=== PATIENT | male | born 1995 | race Caucasian/White ===

== ENCOUNTER 2018-04-04 15:38 | Observation (INO) | payer OTHER, SELFPAY ==
[2018-04-04 15:57] VITALS: BMI 21.2
[2018-04-04 16:04] VITALS: BMI 21.2
--- NOTE | 2018-04-04 16:12 | PCM.HP.STD ---
Problem List (1) Heroin withdrawal Status: Acute History of Present Illness Date of Admission: 04/04/18 Chief Complaint: heroine use The patient is a 22 year old M with a h/o stomach pain and heroine use presenting with withdrawal and a CINA of 18. He last used last night and he has a 2 gm per day heroine habit. He states that he started using at 15 yo because of his stomach pains. Nothing ever worked for his pain and he had seen multiple doctors who had no answer so he turned to heroine. He denies any h/o withdrawal or overdose. He has been to rehab 1 time prior in 2017 in [place]. It was there that a doctor started him on amitriptyline for his stomach pain which has helped a lot. Past Medical History Allergies amoxicillin Allergy (Verified 04/04/18 16:06) Rash Home Medications: Ambulatory Orders Medication Instructions Recorded Amitriptyline HCl [Amitriptyline 50 mg PO QHS 04/04/18 HCl] Surgical History: no surgical history Psychiatric History: No pertinent psych hx Lives: With Family Smoking Status: Current every day smoker Alcohol: None Drugs: Heroin - *Family History Maternal History Items: - - Heroine use Review of Systems Constitutional: Denies: Chills, Fever, Weight Change HEENT: Reports: Head Aches. Denies: Sinus Congestion, Sinus Drainage Cardiovascular: Denies: Chest Pain, Palpitations Respiratory: Denies: Cough, Shortness of breath at rest, Sputum production Gastrointestinal: Reports: Abdominal Pain. Denies: Nausea, Vomiting Genitourinary: Denies: Dysuria Musculoskeletal: Denies: Joint Pain, Joint Tenderness Skin: Denies: Rash, Wounds Neurological: Reports: Tremor. Denies: Focal weakness, Numbness, Tingling Psychiatric: Denies: Anxiety, Depression Hematologic/ Lymphatic: Denies: Easy Bruising, Easy Bleeding VTE Information - Inpt Only VTE Present on Admission: No Patient Problems: Active and Suspected Problems Heroin withdrawal (Acute) - Physical Exam General: Alert, Oriented x3, Cooperative, - - tremulous HEENT: Atraumatic, EOMI, Normocephalic Oral: Moist Mucosa Neck: Supple, No JVD Lungs: Clear to auscultation, Normal air movement, No rhonchi, No rales, Wheezes Cardiovascular: Regular Rhythm, Normal S1, Normal S2, No murmurs, Tachycardic Abdomen: Soft, Non Tender, Non-Distended, No Hepato-splenomegaly Skin: No rashes, No breakdown Psych/Mental Status: Normal Affect, Restless Weight: 131 lb 6.328 oz Body Mass Index (BMI) 21.2 Assessment/Plan All Active Problems Heroin withdrawal (Acute) 1. Heroine withdrawal - [facility] is already aware - Will admit to [facility] - Standard PRN medications ordered and will montior - Buprenorphine taper 2. Stomach pain - He states its because he has a broken nerve as he was told by the Doctor in [place] - C/w his amitriptyline 3. Tobacco use - Counseled on its cessation - Will start a nicotine patch 4. Wheezing - He denies an h/o asthma - Will start albuterol q4 prn for wheezing Diet: Regular DVT: None Code Visit Inpatient E&M: 06167 Init Hosp L2
--- NOTE | 2018-04-04 16:16 | HP.PCM_ITS ---
Problem List (1) Heroin withdrawal Status: Acute History of Present Illness Date of Admission: 04/04/18 Chief Complaint: heroine use The patient is a 22 year old M with a h/o stomach pain and heroine use presenting with withdrawal and a CINA of 18. He last used last night and he has a 2 gm per day heroine habit. He states that he started using at 15 yo because of his stomach pains. Nothing ever worked for his pain and he had seen multiple doctors who had no answer so he turned to heroine. He denies any h/o withdrawal or overdose. He has been to rehab 1 time prior in 2017 in [place]. It was there that a doctor started him on amitriptyline for his stomach pain which has helped a lot. Past Medical History Allergies amoxicillin Allergy (Verified 04/04/18 16:06) Rash Home Medications: Ambulatory Orders Medication Instructions Recorded Amitriptyline HCl [Amitriptyline 50 mg PO QHS 04/04/18 HCl] Surgical History: no surgical history Psychiatric History: No pertinent psych hx Lives: With Family Smoking Status: Current every day smoker Alcohol: None Drugs: Heroin - *Family History Maternal History Items: - - Heroine use Review of Systems Constitutional: Denies: Chills, Fever, Weight Change HEENT: Reports: Head Aches. Denies: Sinus Congestion, Sinus Drainage Cardiovascular: Denies: Chest Pain, Palpitations Respiratory: Denies: Cough, Shortness of breath at rest, Sputum production Gastrointestinal: Reports: Abdominal Pain. Denies: Nausea, Vomiting Genitourinary: Denies: Dysuria Musculoskeletal: Denies: Joint Pain, Joint Tenderness Skin: Denies: Rash, Wounds Neurological: Reports: Tremor. Denies: Focal weakness, Numbness, Tingling Psychiatric: Denies: Anxiety, Depression Hematologic/ Lymphatic: Denies: Easy Bruising, Easy Bleeding VTE Information - Inpt Only VTE Present on Admission: No Patient Problems: Active and Suspected Problems Heroin withdrawal (Acute) - Physical Exam General: Alert, Oriented x3, Cooperative, - - tremulous HEENT: Atraumatic, EOMI, Normocephalic Oral: Moist Mucosa Neck: Supple, No JVD Lungs: Clear to auscultation, Normal air movement, No rhonchi, No rales, Wheezes Cardiovascular: Regular Rhythm, Normal S1, Normal S2, No murmurs, Tachycardic Abdomen: Soft, Non Tender, Non-Distended, No Hepato-splenomegaly Skin: No rashes, No breakdown Psych/Mental Status: Normal Affect, Restless Weight: 131 lb 6.328 oz Body Mass Index (BMI) 21.2 Assessment/Plan All Active Problems Heroin withdrawal (Acute) 1. Heroine withdrawal - [facility] is already aware - Will admit to [facility] - Standard PRN medications ordered and will montior - Buprenorphine taper 2. Stomach pain - He states its because he has a broken nerve as he was told by the Doctor in [place] - C/w his amitriptyline 3. Tobacco use - Counseled on its cessation - Will start a nicotine patch 4. Wheezing - He denies an h/o asthma - Will start albuterol q4 prn for wheezing Diet: Regular DVT: None Code Visit Inpatient E&M: 65025 Init Hosp L2
[2018-04-04 16:19] VITALS: BP 123/81; PULSE 91; RESP 18; TEMP 36.4
[2018-04-04] MEDS: Acetaminophen 325 MG Tablet 650 MG PO (17:10)
[2018-04-04] MEDS: Buprenorphine HCl 2 MG TAB.SUBL SL (17:11)
[2018-04-04] MEDS: Dicyclomine 10 MG Capsule 20 MG PO (17:11)
[2018-04-04] MEDS: cloNIDine HCl 0.1 MG Tablet PO (17:16)
[2018-04-04 18:34] VITALS: BP 117/73; PULSE 73; RESP 12; TEMP 36.7
[2018-04-04 20:34] VITALS: BP 106/68; PULSE 74; RESP 16; TEMP 36.9
[2018-04-05] MEDS: Buprenorphine HCl 2 MG TAB.SUBL SL ×3 (00:24→16:42)
[2018-04-05] MEDS: Acetaminophen 325 MG Tablet 650 MG PO ×3 (00:24→20:32)
[2018-04-05] MEDS: hydrOXYzine PAM 25 MG Capsule 50 MG PO ×2 (00:27→21:19)
[2018-04-05 02:00] VITALS: BP 134/58; PULSE 65; RESP 16; TEMP 36.6
[2018-04-05 06:00] VITALS: BP 116/55; PULSE 68; RESP 18; TEMP 36.8
[2018-04-05 10:32] VITALS: BP 119/92; PULSE 100; RESP 18; TEMP 36.4
--- NOTE | 2018-04-05 13:02 | PCM.PN.HOSP ---
Patient Problems: Active and Suspected Problems Heroin withdrawal (Acute) Subjective: Patient symptoms are better controlled. Denies tremors/myoclonus or abdominal pain/diarrhea. No sweating. Denies IV use of heroin. Denies other substance use except heroin. Vitals/I&O's: Vital Signs Temp Pulse Resp BP 97.5 F L 100 18 119/92 H 04/05/18 10:32 04/05/18 10:32 04/05/18 10:32 04/05/18 10:32 Weight: 131 lb 6.328 oz Body Mass Index (BMI) 21.2 Intake and Output for Last 24 Hours 04/03/18 04/04/18 04/05/18 23:59 23:59 23:59 Intake Total 850 / 850 Balance 850 / 850 General: Alert, Oriented x3, Cooperative HEENT: Atraumatic, PERRLA, EOMI, Normocephalic Neck: Supple, No JVD, Negative Carotid Bruits Lungs: Clear to auscultation, Normal air movement Cardiovascular: Regular rate, Normal S1, Normal S2, No murmurs Abdomen: Bowel Sounds Present, Soft, Non Tender, Non-Distended, No Hepato-splenomegaly Extremities: No edema, Capillary Refill Less than 3 Seconds Skin: No rashes, No breakdown Musculoskeletal: No Tenderness to Palpation of Joints or Extremities Neurological: Cranial nerves II-XII grossly intact, Neuro grossly intact Psych/Mental Status: Normal Affect, Appropriate Current Medications Acetaminophen (Tylenol) 650 mg PO Q6H PRN PRN PRN Reason: for toothache. Last Admin: 04/05/18 00:24 Dose: 650 mg Albuterol Sulfate (Ventolin Aerosols) 2.5 mg INHALATION Q4HWA.RT PRN PRN Reason: WHEEZING Buprenorphine HCl (Buprenorphine Hcl) 4 mg SL Q8H JACE PRN Reason: Taper Stop: 04/07/18 20:59 Last Admin: 04/05/18 10:28 Dose: 4 mg Clonidine (Catapres) 0.1 mg PO Q2H PRN PRN PRN Reason: Hot/Cold Sweats or Anxiety Last Admin: 04/04/18 17:16 Dose: 0.1 mg Dicyclomine HCl (Bentyl) 20 mg PO Q6H PRN PRN PRN Reason: Abdomnial Discomfort Last Admin: 04/04/18 17:11 Dose: 20 mg Hydroxyzine HCl (Vistaril Vial) 50 mg IM Q6H PRN PRN PRN Reason: Breakthrough Anxiety Hydroxyzine Pamoate (Vistaril Pamoate Capsule) 50 mg PO Q6H PRN PRN PRN Reason: Mild Anxiety Last Admin: 04/05/18 00:27 Dose: 50 mg Methocarbamol (Methocarbamol) 750 mg PO Q6H PRN PRN PRN Reason: Muscle Aches Nicotine (Nicoderm Cq (Pbkc)) 14 mg TRANSDERM. DAILY JACE Last Admin: 04/05/18 10:28 Dose: 14 mg Pramipexole Dihydrochloride (Mirapex) 0.25 mg PO Q12H PRN PRN PRN Reason: Restless Legs Medical Necessity - Tobacco Use Smoking Status: Current every day smoker Assessment/Plan All Active Problems Heroin withdrawal (Acute) The patient is a 22 year old M with history of heroin use through inhalation/snorting was admitted with heroin withdrawal of the stomach pain and a CINA of 18. He last use was was 1 night before admission and he has a 2 gm per day heroine habit. He states that he started using at 15 yo because of his stomach pains. Nothing ever worked for his pain and he had seen multiple doctors who had no answer so he turned to heroine. He denies any h/o withdrawal or overdose. He has been to rehab 1 time prior in 2017 in [place]. It was there that a doctor started him on amitriptyline for his stomach pain which has helped a lot. 1. Heroine withdrawal -Per [facility] protocol for heroin withdrawal - Buprenorphine taper. Basic labs including CBC and CMP ordered. Folic acid and B12 ordered 2. Stomach pain - He states its because he has a broken nerve as he was told by the Doctor in [place] - C/w his amitriptyline 3. Tobacco use - Counseled on its cessation - nicotine patch 4. Wheezing - He denies an h/o asthma - albuterol q4 prn for wheezing DVT prophylaxis: Low risk. Early ambulation encouraged. Code Visit Inpatient E&M: 90934 Subs Hosp L2
[2018-04-05 14:25] VITALS: BP 123/76; PULSE 67; RESP 14; TEMP 36.7
[2018-04-05 15:26] LABS: Absolute Lymphocyte Count 2.36 X10^3/ul (0.83-4.51); Absolute Neutrophil Count 5.3 X10^3/uL (2.0-7.7); Basophil# 0.06 X10^3/uL; Basophil% 0.7 % (0-1); Eosinophil# 0.79 X10^3/uL; Eosinophils% 8.7 % (0-5); Hematocrit 45.9 % (40-54); Hemoglobin 15.1 g/dl (13.0-16.5); Lymphocyte # 2.36 X10^3/ul (4.0); Lymphocyte % 25.9 % (19-41); Mean Corp Hgb Conc 32.9 g/gl (32-36); Mean Corpuscular Hgb 30.4 pg (27.0-32.0); Mean Corpuscular Volume 92.4 fL (80-94); Mean Platelet Vol. 10.5 fl (6.2-12.0); Monocyte# 0.57 X10^3/uL; Monocyte% 6.3 % (0-10); Neutrophil # 5.32 X10^3/uL (2.7-7.7); Neutrophil % 58.3 % (47-70); Platelet Count 327 K/mm3 (150-450); RBC Distribution Width CV 12.7 % (11.6-14.6); RBC Distribution Width SD 42.5 fl (35.1-43.9); Red Blood Count 4.97 M/mm3 (4.6-6.2); White Blood Count 9.1 K/mm3 (4.4-11.0)
[2018-04-05 15:33] LABS: POSITIVE COUNT NO; POSITIVE DIFFERENTIAL NO; POSITIVE MORPHOLOGY NO
[2018-04-05 15:54] LABS: Vitamin B12 274 pg/mL (211-911)
[2018-04-05 15:59] LABS: AST(SGOT) 18 U/L (15-37); Alanine Aminotransfer ALT/SGPT 28 U/L (16-61); Albumin, Serum 3.7 g/dL (3.2-5.0); Alkaline Phosphatase 141 U/L (45-117); Anion Gap 6 (5-15); BUN 6 mg/dL (7-18); BUN/Creat Ratio 7.2 RATIO (10-20); Calcium,Total 9.1 mg/dL (8.5-10.1); Chloride 103 mmol/L (98-107); Creatinine, Serum 0.83 mg/dL (0.70-1.30); EST Glomerular Filtration Rate 121 mL/min (>60); Est Glom Filt Rate - Afr Amer 147 mL/min (>60); Estimated Creatinine Clearance 116.69 ml/min; Globulin 3.8 g/dL (2.2-4.2); Glucose 79 mg/dL (74-106); Protein, Total 7.5 g/dL (6.4-8.2); Sodium Level 139 mmol/L (136-145)
[2018-04-05] MEDS: Amitriptyline 25 MG Tablet 50 MG PO (20:34)
[2018-04-05 22:00] VITALS: BP 121/82; PULSE 90; RESP 18; TEMP 36.6
[2018-04-06] MEDS: Buprenorphine HCl 2 MG TAB.SUBL SL ×3 (00:36→21:39)
[2018-04-06 02:50] VITALS: BP 118/86; PULSE 68; RESP 16; TEMP 36.7
[2018-04-06 10:00] VITALS: BP 130/79; PULSE 60; RESP 16; TEMP 36.6
--- NOTE | 2018-04-06 11:43 | PCM.PN.HOSP ---
Patient Problems: Active and Suspected Problems Heroin withdrawal (Acute) Subjective: Patient is on nicotine patch for smoking. He had a strong urge of smoking yesterday but is more calm today. Vitals/I&O's: Vital Signs Temp Pulse Resp BP 97.9 F 60 16 130/79 H 04/06/18 10:00 04/06/18 10:00 04/06/18 10:00 04/06/18 10:00 Oxygen Delivery Method Room Air Weight: 131 lb 6.328 oz Body Mass Index (BMI) 21.2 Intake and Output for Last 24 Hours 04/04/18 04/05/18 04/06/18 23:59 23:59 23:59 Intake Total 1350 / 1350 1000 / 1000 Balance 1350 / 1350 1000 / 1000 General: Alert, Oriented x3, Cooperative HEENT: Atraumatic, PERRLA, EOMI, Normocephalic Neck: Supple, No JVD, Negative Carotid Bruits Lungs: Clear to auscultation, Normal air movement Cardiovascular: Regular rate, No murmurs Abdomen: Bowel Sounds Present, Soft, Non Tender Extremities: No edema, Capillary Refill Less than 3 Seconds Skin: No rashes, No breakdown Musculoskeletal: No Tenderness to Palpation of Joints or Extremities Neurological: Cranial nerves II-XII grossly intact Psych/Mental Status: Normal Affect, Appropriate Laboratory Results 04/05/18 14:55: Sodium 139, Potassium 4.0, Chloride 103, Carbon Dioxide 30.0, Anion Gap 6, BUN 6 L, Creatinine 0.83, Estim Creat Clear Calc 116.69, Est GFR (MDRD) Af Amer 147, Est GFR (MDRD) Non-Af 121, BUN/Creatinine Ratio 7.2 L, Glucose 79, Calcium 9.1, Total Bilirubin 0.50, AST 18, ALT 28, Alkaline Phosphatase 141 H, Total Protein 7.5, Albumin 3.7, Globulin 3.8, Albumin/Globulin Ratio 1.0, Folate 12.40 04/05/18 14:55: WBC 9.1, RBC 4.97, Hgb 15.1, Hct 45.9, MCV 92.4, MCH 30.4, MCHC 32.9, RDW 12.7, RDW Differential 42.5, Plt Count 327, MPV 10.5, Immature Gran % (Auto) 0.100, Neut % (Auto) 58.3, Lymph % (Auto) 25.9, [place] % (Auto) 6.3, Eos % (Auto) 8.7 H, Baso % (Auto) 0.7, Absolute Neuts (auto) 5.3, Absolute Lymphs (auto) 2.36, Total Counted Not Reportable 04/05/18 14:55: Vitamin B12 274 Current Medications Acetaminophen (Tylenol) 650 mg PO Q6H PRN PRN PRN Reason: for toothache. Last Admin: 04/05/18 20:32 Dose: 650 mg Albuterol Sulfate (Ventolin Aerosols) 2.5 mg INHALATION Q4HWA.RT PRN PRN Reason: WHEEZING Amitriptyline HCl (Elavil) 50 mg PO QHS JACE Last Admin: 04/05/18 20:34 Dose: 50 mg Buprenorphine HCl (Buprenorphine Hcl) 2 mg SL Q12H JACE PRN Reason: Taper Stop: 04/07/18 20:59 Last Admin: 04/06/18 08:53 Dose: 2 mg Clonidine (Catapres) 0.1 mg PO Q2H PRN PRN PRN Reason: Hot/Cold Sweats or Anxiety Last Admin: 04/04/18 17:16 Dose: 0.1 mg Dicyclomine HCl (Bentyl) 20 mg PO Q6H PRN PRN PRN Reason: Abdomnial Discomfort Last Admin: 04/04/18 17:11 Dose: 20 mg Hydroxyzine HCl (Vistaril Vial) 50 mg IM Q6H PRN PRN PRN Reason: Breakthrough Anxiety Hydroxyzine Pamoate (Vistaril Pamoate Capsule) 50 mg PO Q6H PRN PRN PRN Reason: Mild Anxiety Last Admin: 04/05/18 21:19 Dose: 50 mg Methocarbamol (Methocarbamol) 750 mg PO Q6H PRN PRN PRN Reason: Muscle Aches Nicotine (Nicoderm Cq (Pbkc)) 21 mg TRANSDERM. DAILY JACE Last Admin: 04/06/18 08:53 Dose: 21 mg Pramipexole Dihydrochloride (Mirapex) 0.25 mg PO Q12H PRN PRN PRN Reason: Restless Legs Medical Necessity - Tobacco Use Smoking Status: Current every day smoker Assessment/Plan All Active Problems Heroin withdrawal (Acute) The patient is a 22 year old M with history of heroin use through inhalation/snorting was admitted with heroin withdrawal of the stomach pain and a CINA of 18. He last use was was 1 night before admission and he has a 2 gm per day heroine habit. He states that he started using at 15 yo because of his stomach pains. Nothing ever worked for his pain and he had seen multiple doctors who had no answer so he turned to heroine. He denies any h/o withdrawal or overdose. He has been to rehab 1 time prior in 2017 in [place]. It was there that a doctor started him on amitriptyline for his stomach pain which has helped a lot. 1. Heroine withdrawal -Per [facility] protocol for heroin withdrawal - Buprenorphine taper. Basic labs is within acceptable limit. Alkaline phosphatase 141. Total bili normal. Vitamin B12 274. Folate normal. 2. Stomach pain - He states its because he has a broken nerve as he was told by the Doctor in [place] - C/w his amitriptyline 3. Tobacco use - Counseled on its cessation - nicotine patch 4. Wheezing - He denies an h/o asthma - albuterol q4 prn for wheezing DVT prophylaxis: Low risk. Early ambulation encouraged. Laboratory Results 04/05/18 14:55: Sodium 139, Potassium 4.0, Chloride 103, Carbon Dioxide 30.0, Anion Gap 6, BUN 6 L, Creatinine 0.83, Estim Creat Clear Calc 116.69, Est GFR (MDRD) Af Amer 147, Est GFR (MDRD) Non-Af 121, BUN/Creatinine Ratio 7.2 L, Glucose 79, Calcium 9.1, Total Bilirubin 0.50, AST 18, ALT 28, Alkaline Phosphatase 141 H, Total Protein 7.5, Albumin 3.7, Globulin 3.8, Albumin/Globulin Ratio 1.0, Folate 12.40 04/05/18 14:55: WBC 9.1, RBC 4.97, Hgb 15.1, Hct 45.9, MCV 92.4, MCH 30.4, MCHC 32.9, RDW 12.7, RDW Differential 42.5, Plt Count 327, MPV 10.5, Immature Gran % (Auto) 0.100, Neut % (Auto) 58.3, Lymph % (Auto) 25.9, [place] % (Auto) 6.3, Eos % (Auto) 8.7 H, Baso % (Auto) 0.7, Absolute Neuts (auto) 5.3, Absolute Lymphs (auto) 2.36, Total Counted Not Reportable 04/05/18 14:55: Vitamin B12 274 Code Visit Inpatient E&M: 35457 Subs Hosp L2
[2018-04-06 14:00] VITALS: BP 123/75; PULSE 79; RESP 14; TEMP 36.2
[2018-04-06] MEDS: Acetaminophen 325 MG Tablet 650 MG PO (19:28)
[2018-04-06 19:30] VITALS: BP 122/72; PULSE 90; RESP 18; TEMP 36.8
[2018-04-06 21:30] VITALS: BP 118/72; PULSE 88; RESP 18; TEMP 36.6
[2018-04-06] MEDS: Amitriptyline 25 MG Tablet 50 MG PO (21:39)
[2018-04-06] MEDS: hydrOXYzine PAM 25 MG Capsule 50 MG PO (21:40)
--- NOTE | 2018-04-07 07:28 | PCM.DC ---
- Discharge Diagnoses Current Active Problems: Current Active and Chronic Problems Heroin withdrawal (Acute) You will use the following diet at home:: Regular Discharge Activity: May Not Drive Additional Instructions: Follow-up outpatient rehab as scheduled per [facility] program Allergies/Adverse Reactions: Allergies amoxicillin Allergy (Verified 04/04/18 16:06) Rash Medications to take at Discharge Amitriptyline HCl 50 mg PO QHS 04/04/18 Nicotine [Nicoderm Cq] 21 mg TRANSDERM. DAILY #30 patch 04/07/18 The following prescriptions were given: Nicotine [Nicoderm Cq] 21 mg TRANSDERM. DAILY #30 patch Primary Care Physician: Jimmy James,Out of [Primary Care Provider] - Please follow up with your Primary Care Physician in: in 2 weeks Test Results: Test results from this visit will be discussed in further detail at your follow-up appointment, if applicable.
--- NOTE | 2018-04-07 07:30 | PCM.DC.SUM ---
Discharge Date and Diagnosis Date of Admission: 04/04/18 Date of Discharge: 04/07/18 - Primary Discharge Diagnosis Active and Suspected Problems Heroin withdrawal (Acute) Hospital Course and Treatment Summary of Care Provided: [] The patient is a 22 year old M with history of heroin use through inhalation/snorting was admitted with heroin withdrawal of the stomach pain and a CINA of 18. He last use was was 1 night before admission and he has a 2 gm per day heroine habit. He states that he started using at 15 yo because of his stomach pains. Nothing ever worked for his pain and he had seen multiple doctors who had no answer so he turned to heroine. He denies any h/o withdrawal or overdose. He has been to rehab 1 time prior in 2017 in [place]. It was there that a doctor started him on amitriptyline for his stomach pain which has helped a lot. The patient was seen and examined. General: Alert, Oriented x3, Cooperative HEENT: Atraumatic, PERRLA, EOMI, Normocephalic Neck: Supple, No JVD, Negative Carotid Bruits Lungs: Clear to auscultation, Normal air movement Cardiovascular: Regular rate, No murmurs Abdomen: Bowel Sounds Present, Soft, Non Tender Extremities: No edema, Capillary Refill Less than 3 Seconds Skin: No rashes, No breakdown Musculoskeletal: No Tenderness to Palpation of Joints or Extremities Neurological: Cranial nerves II-XII grossly intact Psych/Mental Status: Normal Affect, Appropriate 1. Acute heroine withdrawal -Per [facility] protocol for heroin withdrawal - Buprenorphine taper. Basic labs is within acceptable limit. Alkaline phosphatase 141. Total bili normal. Vitamin B12 274. Folate normal. 2. Stomach pain - He states its because he has a broken nerve as he was told by the Doctor in [place] - C/w his amitriptyline 3. Tobacco use - Counseled on its cessation - nicotine patch 4. Wheezing - He denies an h/o asthma - albuterol q4 prn for wheezing DVT prophylaxis: Low risk. Early ambulation encouraged. Discharge meds reconciliation done. Follow-up instructions completed. Prescription for nicotine patch was given. Follow with PCP in 1-2 weeks. Discharge Activity: May Not Drive Home Medications: Medications to take at Discharge Amitriptyline HCl 50 mg PO QHS 04/04/18 Nicotine [Nicoderm Cq] 21 mg TRANSDERM. DAILY #30 patch 04/07/18 Following Prescrptions Were Given to Patient: Nicotine [Nicoderm Cq] 21 mg TRANSDERM. DAILY #30 patch Primary Care Physician: Jimmy Doctor,Out of [Primary Care Provider] - Please follow up with your Primary Care Physician in: in 2 weeks Medical Necessity - Tobacco Use Smoking Status: Current every day smoker Meaningful Use Info Meaningful Use Diagnoses (Choose all that apply): None applicable Code Visit Inpatient E&M: 63539 Disch Hosp
[2018-04-07] MEDS: Buprenorphine HCl 2 MG TAB.SUBL SL (09:25)
[2018-04-07 09:36] VITALS: BP 122/77; PULSE 73; RESP 14; TEMP 36.6
== END 2018-04-07 11:45 | disposition home or self-care (01) | DRG 897 ==
PROVIDERS: Admitting Provider Family Medicine; Referring Provider Family Medicine; Visit Provider Internal Medicine
DX: F11.23 Opioid dependence with withdrawal (principal); R06.2 Wheezing; F17.200 Nicotine dependence, unspecified, uncomplicated; R10.9 Unspecified abdominal pain; Z79.899 Other long term (current) drug therapy
CPT/HCPCS: 80053; 82607; 82746; 85025; 97802; 99218; G0378; G0379

== ENCOUNTER 2018-11-01 05:09 | Emergency (ER) | payer OTHER, SELFPAY ==
[2018-11-01 05:12] VITALS: BP 126/74; PULSE 92; RESP 16; TEMP 36.6; O2SAT 100; BMI 20.9
--- NOTE | 2018-11-01 05:46 | ED.VISSUMM ---
- ER Visit Summary Date of Service: 11/01/18 Chief Complaint: Dental pain and facial swelling History of Present Illness: The patient is a 23 M who presents with dental pain and facial swelling. This been going on for 2 days. He is concerned that he may have an abscess requiring drainage. He does have a dentist at home in [place]. He reports subjective fever no documented fever. He denies any nausea vomiting. Physical Examination: Afebrile vitals normal There is a focal dental abscess at the site of the left maxillary first premolar that is spontaneously draining. No trismus Mild left-sided facial swelling Heart regular Lungs clear Test Results: Not indicated Emergency Department Course and Treatment: The remainder of the abscess was easily able to be manually expressed. Patient was given a prescription for clindamycin due to penicillin allergy. He will follow-up with his dentist. He was discharged. Treatment Plan: [] Disposition: Discharge Impression: Dental abscess This note was generated with [employer] dictation software. It may contain incorrect words, spelling, and punctuation that were not noted in review of the chart prior to signing ED Disposition - Plan for ED Patient: Referrals: [facility] Doctor,Out of [Primary Care Provider] -
--- NOTE | 2018-11-01 05:49 | DCINST.ED_ITS ---
ED Disposition - Plan for ED Patient: Instructions: ED Abscess Dental Prescriptions: Clindamycin HCl [Cleocin] 300 mg PO Q6H #40 cap Referrals: [facility] Doctor,Out of [Primary Care Provider] -
== END 2018-11-01 05:53 | disposition home or self-care (01) ==
LOC: ED 05:51
PROVIDERS: Emergency Provider Emergency Medicine
DX: K04.7 Periapical abscess without sinus (principal); Z72.0 Tobacco use; Z88.0 Allergy status to penicillin
CPT/HCPCS: 41800; 99282